=== PATIENT | female | born 1960 | race Caucasian/White ===

== ENCOUNTER 2018-09-11 22:30 | Emergency (ER) | payer MEDICAID, OTHER ==
[~2018-09-11] VITALS: Ht 160 cm; Wt 104.0 kg
[~2018-09-11 22:30] MED LIST: METH4TAB81 PO
[2018-09-11 23:17] LABS: BASOPHILS # (AUTO) 0.1 X10'3 (0-0.2); BASOPHILS % (AUTO) 0.7 % (0-1); EOSINOPHILS # (AUTO) 0.4 X10'3 (0-0.9); HEMATOCRIT 41.1 % (35.0-45.0); LYMPHOCYTES # (AUTO) 2.5 X10'3 (1.1-4.8); LYMPHOCYTES % (AUTO) 27.9 % (21-51); MEAN CORPUSCULAR HEMOGLOBIN 30.6 PG (27.0-31.0); MEAN CORPUSCULAR VOLUME 89.9 FL (78-98); MEAN PLATELET VOLUME 8.8 FL (7.4-10.4); MONOCYTES # (AUTO) 0.7 X10'3 (0-0.9); MONOCYTES % (AUTO) 7.5 % (2-12); NEUTROPHILS # (AUTO) 5.4 X10'3 (1.8-7.7); NEUTROPHILS % (AUTO) 59.9 % (42-75); PLATELET COUNT 212 X10'3 (140-440); RED BLOOD COUNT 4.57 X10'6 (4.20-5.60); RED CELL DISTRIBUTION WIDTH 13.3 % (11.5-14.5)
[2018-09-11 23:31] LABS: ALANINE AMINOTRANSFERASE 30 U/L (12-78); ALBUMIN 3.9 G/DL (3.4-5.0); ALBUMIN/GLOBULIN RATIO 1.1 (1.1-1.5); ALKALINE PHOSPHATASE 116 IU/L (46-116); ANION GAP 11 (8-16); ASPARTATE AMINO TRANSFERASE 20 U/L (10-37); BILIRUBIN,TOTAL 0.3 MG/DL (0.1-1.0); BLOOD UREA NITROGEN 20 MG/DL (7-18); BUN/CREATININE RATIO 21.7 (6.6-38.0); CALCIUM 9.4 MG/DL (8.5-10.1); CHLORIDE 102 MMOL/L (99-107); CREATININE 0.92 MG/DL (0.40-0.90); GLUCOSE 99 MG/DL (70-104); POTASSIUM 3.8 MMOL/L (3.5-5.1); SODIUM 139 MMOL/L (135-145); TOTAL CARBON DIOXIDE 26.2 MMOL/L (24-32); TOTAL PROTEIN 7.6 G/DL (6.4-8.2); eGFR 63 ML/MIN
[2018-09-11 23:34] LABS: PARTIAL THROMBOPLASTIN TIME 31 SECONDS (22-32)
[2018-09-12] VITALS (9 sets, daily range): BP systolic 98–118; BP diastolic 51–67
[2018-09-12] MEDS ORDERED: aspirin 81mg tab.chew PO ONE (00:50)
[2018-09-12] MEDS ORDERED: metroNIDAZOLE-Flagyl 500mg/NS 100 ML IV ONE (03:35)
[2018-09-12] MEDS ORDERED: ciprofloxacin lact 400MG/200ML 200 ML IV SCH ×2 (03:35→17:00)
[2018-09-12] MEDS ORDERED: acetaminophen 325mg tablet PO PRN ×2 (05:10)
[2018-09-12] MEDS ORDERED: HYDROcodone/acetaminophen 5mg/325mg tablet PO PRN (05:10)
[2018-09-12] MEDS ORDERED: potassium Cl 20 mEq SR tablet PO PRN ×2 (05:10)
[2018-09-12] MEDS ORDERED: nitroGLYCERIN 0.4mg SUBLingual tab SL PRN ×2 (05:10)
[2018-09-12] MEDS ORDERED: potassium Cl 40MEQ/NS 500ml 500 ML IV PRN ×2 (05:10)
[2018-09-12] MEDS ORDERED: aminophylline 250mg/10ml inj. IV PRN (05:10)
[2018-09-12] MEDS ORDERED: ondansetron/PF 4mg/2ml inj IV PRN (05:10)
[2018-09-12] MEDS ORDERED: morphine 2 MG/ML inj. syringe IV PRN ×2 (05:10)
[2018-09-12] MEDS ORDERED: regadenoson 0.4mg/5ml syringe IV ONE ×2 (05:10→09:17)
[2018-09-12] MEDS ORDERED: magnesium 2GM in 50ml NS 50 ML IV PRN (05:10)
[2018-09-12] MEDS ORDERED: magnesium 4gm in 100ml NS 100 ML IV PRN (05:10)
[2018-09-12] MEDS ORDERED: metoprolol tartrate 1mg/ml inj IV PRN (05:10)
[2018-09-12] MEDS ORDERED: magnesium Cl slow-release 64mg tablet PO PRN (05:10)
[2018-09-12] MEDS ORDERED: magnesium hydroxide 30ml (MOM) UD suspension PO PRN (05:10)
[2018-09-12] MEDS ORDERED: mag hydrox/Alum hydrox/simeth 30ml oral suspension PO PRN (05:10)
[2018-09-12] MEDS ORDERED: HYDROcodone/acetaminophen 10/325mg tab PO PRN (05:10)
[2018-09-12] MEDS: normal saline 1000ml 1,000 ML IV SCH ×2 (05:24→11:36)
[2018-09-12] MEDS ORDERED: K and/or MAG REPLACEMENT MC SCH (08:00)
[2018-09-12] MEDS ORDERED: enoxaparin 40mg/0.4ml syringe SUBCUT SCH (08:00)
[2018-09-12] MEDS ORDERED: furosemide 10 MG/1 ML 10ml inj IV SCH (08:00)
[2018-09-12] MEDS ORDERED: aminophylline inj. 10 ML IV ONE (09:17)
--- NOTE | 2018-09-12 10:45 | NUR ---
RECIEVED PT FROM [facility].ALERT X3.DENIES PAIN. VS STABLE. SET UP TO WATCH TV. LUNGS CLEAR,SLIGHTLY DIMISHED BASES.
[2018-09-12] MEDS ORDERED: metroNIDAZOLE-Flagyl 500mg/NS 100 ML IV SCH (12:00)
--- NOTE | 2018-09-12 12:29 | NUR ---
AM MEDS GIVEN ABOUT 1200. BR X1 TO VOID.
[2018-09-12] MEDS ORDERED: LEVO500T2 PO (13:00)
[2018-09-12] MEDS ORDERED: METR250T PO (13:00)
[2018-09-12] MEDS ORDERED: FURO-150 PO (13:00)
--- NOTE | 2018-09-12 13:00 | NUR ---
DR ROGER HERE TO TALK WITH PT,PLAN TO SEND PT HOME.
--- NOTE | 2018-09-12 13:30 | NUR ---
CALLED PT'S MEDS X3 INTO [facility].
--- NOTE | 2018-09-12 13:44 | NUR ---
PIV L AC DC'D,DC INSTRUCTIONS GIVEN & UNDERSTOOD. DC'D VIA W/C VIA RN.TO DAUGHTER
[2018-09-12] MEDS ORDERED: temazepam 15mg capsule PO PRN (21:00)
== END 2018-09-12 13:44 | disposition home or self-care (01) ==
LOC: ER 22:31
DX: I21.4 Non-ST elevation (NSTEMI) myocardial infarction (principal); R10.12 Left upper quadrant pain; G89.29 Other chronic pain; Z98.890 Other specified postprocedural states; Z79.899 Other long term (current) drug therapy; Z91.013 Allergy to seafood
CPT/HCPCS: 36415; 71045; 74176; 78452; 80053; 83880; 84484; 85025; 85610; 85730; 93017; 96365; 96366; 96368; 96372; 96375; 99285; A9500; J0280; J1940; J3490; J7030; 99284; J0744; J1650

== ENCOUNTER 2018-10-17 07:26 | Day surgery (SDC) | payer OTHER ==
[2018-10-16 11:05] LABS: BASOPHILS # (AUTO) 0.1 X10'3 (0-0.2); BASOPHILS % (AUTO) 0.9 % (0-1); EOSINOPHILS # (AUTO) 0.3 X10'3 (0-0.9); EOSINOPHILS % (AUTO) 5.2 % (0-6); HEMOGLOBIN 13.8 g/dl (12.0-16.0); LYMPHOCYTES # (AUTO) 1.6 X10'3 (1.1-4.8); LYMPHOCYTES % (AUTO) 23.7 % (21-51); MEAN CORPUSCULAR HEMOGLOBIN 30.4 PG (27.0-31.0); MEAN CORPUSCULAR HGB CONC 33.7 g/dL (33.0-36.5); MEAN CORPUSCULAR VOLUME 90.1 FL (78-98); MEAN PLATELET VOLUME 8.9 FL (7.4-10.4); MONOCYTES # (AUTO) 0.5 X10'3 (0-0.9); MONOCYTES % (AUTO) 7.6 % (2-12); NEUTROPHILS # (AUTO) 4.2 X10'3 (1.8-7.7); NEUTROPHILS % (AUTO) 62.6 % (42-75); PLATELET COUNT 175 X10'3 (140-440); RED BLOOD COUNT 4.55 X10'6 (4.20-5.60); RED CELL DISTRIBUTION WIDTH 13.4 % (11.5-14.5); WHITE BLOOD COUNT 6.7 X10'3 (4.5-11.0)
[2018-10-16 11:21] LABS: ALANINE AMINOTRANSFERASE 32 U/L (12-78); ALBUMIN 3.6 G/DL (3.4-5.0); ALKALINE PHOSPHATASE 122 IU/L (46-116); ANION GAP 9 (8-16); ASPARTATE AMINO TRANSFERASE 17 U/L (10-37); BILIRUBIN,TOTAL 0.3 MG/DL (0.1-1.0); BLOOD UREA NITROGEN 14 MG/DL (7-18); BUN/CREATININE RATIO 17.1 (6.6-38.0); CALCIUM 8.7 MG/DL (8.5-10.1); CHLORIDE 105 MMOL/L (99-107); CREATININE 0.82 MG/DL (0.40-0.90); GLUCOSE 100 MG/DL (70-104); POTASSIUM 4.2 MMOL/L (3.5-5.1); SODIUM 139 MMOL/L (135-145); TOTAL CARBON DIOXIDE 25.4 MMOL/L (24-32); TOTAL PROTEIN 7.3 G/DL (6.4-8.2); eGFR 72 ML/MIN
[2018-10-16 11:27] LABS: PARTIAL THROMBOPLASTIN TIME 30 SECONDS (22-32)
[2018-10-17] VITALS (13 sets, daily range): BP systolic 101–138; BP diastolic 63–88
[~2018-10-17] VITALS: Ht 157.5 cm; Wt 97.9 kg
[2018-10-17] MEDS ORDERED: NO HOME MEDS (08:20)
[2018-10-17] MEDS ORDERED: fentaNYL/PF 50MCG/1 ML 2ML syringe ONE (08:38)
[2018-10-17] MEDS ORDERED: midazolam 2 mg/2 ml injection ONE (08:38)
[2018-10-17] MEDS ORDERED: iohexol 350MG/ML 100ml bottle IV ONE (08:38)
[2018-10-17] MEDS ORDERED: iohexol 350 MG/ML 50ML vial IV ONE (08:38)
[2018-10-17] MEDS ORDERED: LIDOcaine 1% (10mg/ml)w/preservative injection 20ml MDV ONE (08:38)
[2018-10-17] MEDS ORDERED: methylPREDNISolone sod succ 125mg/2ml vial IV ONE (08:39)
[2018-10-17] MEDS ORDERED: normal saline 1,000 ML IV SCH (08:40)
[2018-10-17] MEDS ORDERED: LORazepam 0.5 MG tablet PO PRN (08:40)
[2018-10-17] MEDS ORDERED: diphenhydrAMINE 25mg capsule PO PRN (08:40)
[2018-10-17] MEDS ORDERED: nitroGLYCERIN 0.4mg SUBLingual tab SL PRN (08:40)
[2018-10-17] MEDS ORDERED: OXAZEpam 15mg capsule PO PRN (10:30)
[2018-10-17] MEDS ORDERED: HYDROcodone/acetaminophen 5mg/325mg tablet PO PRN (10:30)
[2018-10-17] MEDS ORDERED: ondansetron/PF 4mg/2ml inj IV PRN (10:30)
[2018-10-17] MEDS ORDERED: proCHLORperazine 10 MG/2 ml inj IV PRN (10:30)
[2018-10-17] MEDS ORDERED: HYDROcodone/acetaminophen 10/325mg tab PO PRN (10:30)
== END 2018-10-17 16:58 | disposition home or self-care (01) ==
LOC: SSTAY O 07:26
PROVIDERS: ATTEND Internal Medicine Cardiovascular Disease
DX: I25.119 Atherosclerotic heart disease of native coronary artery with unspecified angina pectoris (principal); E78.5 Hyperlipidemia, unspecified; Z88.0 Allergy status to penicillin; Z88.8 Allergy status to other drugs, medicaments and biological substances
CPT/HCPCS: 36415; 71046; 80053; 85025; 85610; 85730; 93005; 93458; 99152; 99153; A6257; C1760; C1769; J1644; J2001; J2250; J2930; J3010; J7030; Q0163; Q9967; A4620

== ENCOUNTER 2019-01-06 13:44 | Emergency (ER) | payer OTHER ==
[~2019-01-06] VITALS: Ht 160 cm; Wt 96.8 kg
[~2019-01-06 13:44] MED LIST changes: -METH4TAB81 PO; +NO HOME MEDS
[2019-01-06] MEDS ORDERED: ondansetron/PF 4mg/2ml inj IV ONE (14:00)
[2019-01-06] MEDS ORDERED: morphine 4 MG/ML inj SYRINge IV ONE (14:00)
[2019-01-06] MEDS ORDERED: normal saline 1000ML IV soln IVB ONE (14:00)
[2019-01-06 14:33] LABS: BASOPHILS % (AUTO) 0.4 % (0-1); EOSINOPHILS % (AUTO) 0.5 % (0-6); HEMATOCRIT 41.5 % (35.0-45.0); HEMOGLOBIN 14.2 g/dl (12.0-16.0); LYMPHOCYTES # (AUTO) 1.2 X10'3 (1.1-4.8); LYMPHOCYTES % (AUTO) 12.2 % (21-51); MEAN CORPUSCULAR HEMOGLOBIN 30.4 PG (27.0-31.0); MEAN CORPUSCULAR HGB CONC 34.2 g/dL (33.0-36.5); MONOCYTES # (AUTO) 0.6 X10'3 (0-0.9); MONOCYTES % (AUTO) 5.7 % (2-12); NEUTROPHILS # (AUTO) 7.9 X10'3 (1.8-7.7); NEUTROPHILS % (AUTO) 81.2 % (42-75); PLATELET COUNT 207 X10'3 (140-440); RED BLOOD COUNT 4.67 X10'6 (4.20-5.60); RED CELL DISTRIBUTION WIDTH 12.8 % (11.5-14.5); WHITE BLOOD COUNT 9.7 X10'3 (4.5-11.0)
[2019-01-06 14:45] LABS: PARTIAL THROMBOPLASTIN TIME 27 SECONDS (22-32)
[2019-01-06 14:53] LABS: ALANINE AMINOTRANSFERASE 31 U/L (12-78); ALBUMIN 4.1 G/DL (3.4-5.0); ALBUMIN/GLOBULIN RATIO 1.1 (1.1-1.5); ALKALINE PHOSPHATASE 99 IU/L (46-116); ANION GAP 15 (8-16); ASPARTATE AMINO TRANSFERASE 15 U/L (10-37); BILIRUBIN,TOTAL 0.7 MG/DL (0.1-1.0); BLOOD UREA NITROGEN 11 MG/DL (7-18); BUN/CREATININE RATIO 12.5 (6.6-38.0); CALCIUM 9.3 MG/DL (8.5-10.1); CHLORIDE 105 MMOL/L (99-107); CREATININE 0.88 MG/DL (0.40-0.90); GLUCOSE 113 MG/DL (70-104); POTASSIUM 3.6 MMOL/L (3.5-5.1); SODIUM 141 MMOL/L (135-145); TOTAL CARBON DIOXIDE 21.3 MMOL/L (24-32); TOTAL PROTEIN 7.8 G/DL (6.4-8.2); eGFR 66 ML/MIN
[2019-01-06 15:19] LABS: LIPASE 83 U/L (73-393)
[2019-01-06] MEDS ORDERED: ONDA4TAB6 PO (15:41)
[2019-01-06 16:10] VITALS: BP 146/64
== END 2019-01-06 16:11 | disposition home or self-care (01) ==
LOC: ER 13:44
DX: K44.9 Diaphragmatic hernia without obstruction or gangrene (principal); R11.2 Nausea with vomiting, unspecified; G89.29 Other chronic pain; Z98.890 Other specified postprocedural states; Z91.013 Allergy to seafood; Z88.1 Allergy status to other antibiotic agents; Z79.899 Other long term (current) drug therapy
CPT/HCPCS: 36415; 71045; 76700; 80053; 83690; 84484; 85025; 85610; 85730; 93005; 96361; 96374; 96375; 99284; J2270; J2405; J7030

== ENCOUNTER 2020-06-27 01:06 | Emergency (ER) | payer OTHER ==
[~2020-06-27] VITALS: Ht 160 cm; Wt 96.8 kg
[~2020-06-27 01:06] MED LIST changes: +ONDA4TAB6 PO
[2020-06-27] MEDS ORDERED: ondansetron 4mg rapidly disintigrating tab PO STA (01:17)
[2020-06-27] MEDS ORDERED: pantoprazole 40 MG vial IV ONE (01:30)
[2020-06-27] MEDS ORDERED: ondansetron/PF 4mg/2ml inj IV ONE (01:30)
[2020-06-27] MEDS ORDERED: famotidine/PF 10 mg/ml inj IV ONE (01:30)
[2020-06-27 01:48] LABS: BASOPHILS % (AUTO) 0.5 % (0-1); EOSINOPHILS # (AUTO) 0.2 X10'3 (0-0.9); EOSINOPHILS % (AUTO) 1.9 % (0-6); HEMATOCRIT 41.8 % (35.0-45.0); HEMOGLOBIN 13.9 g/dl (12.0-16.0); LYMPHOCYTES # (AUTO) 1.3 X10'3 (1.1-4.8); LYMPHOCYTES % (AUTO) 12.3 % (21-51); MEAN CORPUSCULAR HEMOGLOBIN 29.6 PG (27.0-31.0); MEAN CORPUSCULAR HGB CONC 33.3 g/dL (33.0-36.5); MEAN CORPUSCULAR VOLUME 88.7 FL (78-98); MEAN PLATELET VOLUME 9.5 FL (7.4-10.4); MONOCYTES # (AUTO) 0.4 X10'3 (0-0.9); MONOCYTES % (AUTO) 4.3 % (2-12); NEUTROPHILS # (AUTO) 8.3 X10'3 (1.8-7.7); PLATELET COUNT 196 X10'3 (140-440); RED BLOOD COUNT 4.71 X10'6 (4.20-5.60); RED CELL DISTRIBUTION WIDTH 13.9 % (11.5-14.5); WHITE BLOOD COUNT 10.2 X10'3 (4.5-11.0)
[2020-06-27] MEDS ORDERED: proCHLORperazine 10 MG/2 ml inj IV ONE (01:50)
[2020-06-27] MEDS ORDERED: morphine 4 MG/ML inj SYRINge IV ONE (01:50)
[2020-06-27] MEDS ORDERED: aspirin 325mg tablet PO ONE (02:00)
[2020-06-27 02:06] LABS: ALANINE AMINOTRANSFERASE 28 U/L (12-78); ALBUMIN 4.1 G/DL (3.4-5.0); ALBUMIN/GLOBULIN RATIO 1.1 (1.1-1.5); ALKALINE PHOSPHATASE 99 IU/L (46-116); ANION GAP 13 (8-16); ASPARTATE AMINO TRANSFERASE 20 U/L (10-37); BILIRUBIN,TOTAL 0.7 MG/DL (0.1-1.0); BLOOD UREA NITROGEN 10 MG/DL (7-18); BUN/CREATININE RATIO 10.4 (6.6-38.0); CALCIUM 9.1 MG/DL (8.5-10.1); CHLORIDE 103 MMOL/L (99-107); CREATININE 0.96 MG/DL (0.40-0.90); GLUCOSE 169 MG/DL (70-104); POTASSIUM 3.8 MMOL/L (3.5-5.1); SODIUM 138 MMOL/L (135-145); TOTAL CARBON DIOXIDE 22.1 MMOL/L (24-32); TOTAL PROTEIN 7.7 G/DL (6.4-8.2); eGFR 59 ML/MIN
--- NOTE | 2020-06-27 02:47 | NUR ---
morphine not administered at this time. Pt pain decreased after adminstration of compazine
[2020-06-27] MEDS ORDERED: PANT-47 PO (02:50)
[2020-06-27] MEDS ORDERED: ONDA4TAB6 PO (02:50)
[2020-06-27 03:02] VITALS: BP 112/58
== END 2020-06-27 03:00 | disposition home or self-care (01) ==
LOC: ER 01:07
DX: R10.13 Epigastric pain (principal); R11.2 Nausea with vomiting, unspecified; G89.29 Other chronic pain; Z91.013 Allergy to seafood; Z88.1 Allergy status to other antibiotic agents; Z79.899 Other long term (current) drug therapy
CPT/HCPCS: 36415; 71045; 80053; 83880; 84484; 85025; 93005; 96374; 96375; 99285; C9113; J0780; J2405; J3490